=== PATIENT | female | born 1985 | race Caucasian/White ===

== ENCOUNTER 2016-06-05 20:21 | Emergency (ER) | payer OTHER ==
--- NOTE | ~2016-06-05 | CT4 ---
[facility] A Service of [facility] & [facility] RADIOLOGY TEXT RESULTS PATIENT: DONNIE TURNER LOCATION: SED : 81 UNIT #: [id number] AGE: [address]: Sushil Gruber MD SEX: F ORDER DR: [id number] [address] [address] [id number] E MR#: [id number] Acc #: [id number] NAME: DONNIE TURNER : 1985 SEX: F STUDY DATE/TIME: 06/05/2016 20:40 UNIT: SED ROOM: STUDY DESCRIPTION: CT Abd and Pelv Wo Cont Attending Physician: Sushil Gruber M.D. Ordering Physician: Sushil Gruber M.D. Primary Care Physician: Graciela Sanderson M.D. MEDICAL IMAGING REPORT This report is preliminary unless electronic signature is present. EXAM CT abdomen and pelvis without IV contrast. COMPARISON April 07, 2016 and April 03, 2013. INDICATIONS 30-year-old female with lower back and abdominal pain for 2 days along with nausea and emesis. FINDINGS Axial CT imaging in the abdomen and pelvis was performed without IV contrast. Coronal and sagittal reformats were constructed. Lack of IV contrast limits evaluation of adenopathy, vasculature and viscera. This CT exam was performed with one or more of the following radiation dose reduction techniques: Automatic exposure control, adjustment of mA and/or kV according to patient size, and iterative reconstruction. Tiny fat-containing umbilical hernia. No acute fractures or suspicious osseous lesions. No acute findings in the lower chest. Unenhanced pancreas, spleen and adrenal glands are unremarkable. There is a cyst versus focal fat in the inferior right hepatic lobe measuring up to 1.1 cm. Bilateral nonobstructive renal calculi. Stable pelvic phleboliths as compared to April 07, 2016. No evidence of ureteral calculi. Urinary bladder is collapsed. There is likely a tampon in place within the vagina. Unenhanced CT appearance of the uterus is unremarkable. No definite adnexal masses. No free fluid or pneumoperitoneum. Normal course of the abdominal aorta with normal caliber. No evidence of adenopathy. No bowel obstruction. No evidence of acute appendicitis. IMPRESSION [facility] A Service of [facility] & [facility] RADIOLOGY TEXT RESULTS PATIENT: DONNIE TURNER LOCATION: SED : [birth year] UNIT #: [id number] AGE: [address]: Sushil Gruber MD SEX: F ORDER DR: 1. No acute abnormality. Bilateral nonobstructive renal calculi. 2. 1.1 cm cyst versus focal fat within the right hepatic lobe. Dictated by... Johnson Fisher M.D. THIS IS AN ELECTRONICALLY VERIFIED REPORT Johnson Fisher M.D. at 06/07/2016 5:59 PM WILEY/deandra TD: 06/06/2016 03:42 JOB #: [id number] MEDICAL IMAGING REPORT Page 1 of 1
[2016-06-05 20:21] LABS: URINE SOURCE CLEAN CATCH
[~2016-06-05 20:21] MED LIST: ALBUTEROL MININEB NEB; ALBUTEROL17 GM INH; AMOXICILLIN PO; AMOXICILLIN500 M1 PO; BACTRIM DS TABL1 TA2 PO; CELEXA10 MG PO; COLACE PO; FLONASE 0.05% N16 G1; GUAIFENESIN200 M1 PO; IRON1 TAB PO; LORTAB 5/500 TA1 TA1 PO; NO MEDICATIONS; PREDNISONE PO; PRILOSEC20 MG PO; PROCTOFOAM-HC10 G1 TOP; TYLENOL #3 PO; VISTARIL PO; VOLTAREN75 MG PO; ZITHROMAX PO; ZOFRAN ODT4 MG PO; [UNRECOGNIZED DRUG - OTHER] PO
[2016-06-05 20:23] LABS: BASOPHIL% 0.4 % (0-2.5); EOSINOPHIL% 0.1 % (0.0-7.0); HEMATOCRIT 38.1 % (35.0-45.0); HEMOGLOBIN 13.1 gm/dL (12.0-16.0); LYMPHOCYTE# 0.7 X10e3 (1.0-3.5); LYMPHOCYTE% 8.6 % (17.0-45.0); MEAN CELL VOLUME 87.8 FL (83-96); MEAN CORPUSCULAR HEMOGLOBIN 30.3 PG (28-34); MEAN CORPUSCULAR HGB CONC 34.5 g/dL (30-36); MEAN PLATELET VOLUME 6.8 FL (6.5-11.5); MONOCYTE# 0.7 X10e3 (0-1.0); MONOCYTE% 8.7 % (3.0-12.0); NEUTROPHIL% 82.2 % (40-75); PLATELET COUNT 163 X10e3 (140-420); RED BLOOD COUNT 4.34 X10e (3.90-5.30); RED CELL DISTRIBUTION WIDTH 12.3 % (11.0-15.5); WHITE BLOOD COUNT 8.5 X10e3 (4.0-10.5)
[2016-06-05 20:25] LABS: DIFF IND NO; URINE APPEARANCE HAZY; URINE BILIRUBIN NEG (NEG); URINE BLOOD 1+ (NEG); URINE COLOR YELLOW; URINE GLUCOSE NEG (NORM); URINE KETONE NEG (NEG); URINE LEUKOCYTE ESTERASE 3+ (NEG); URINE NITRATE NEG (NEG); URINE PH 6.5 (5-8); URINE PROTEIN 2+ (NEG); URINE SPECIFIC GRAVITY <=1.005 (1.003-1.035)
[2016-06-05 20:26] LABS: MICRO INDICATED? YES
[2016-06-05 20:29] LABS: CULTURE INDICATED? YES; URINE BACTERIA 1+ (NEG); URINE RBC 0-2 /[HPF] (0-2); URINE SQUAMOUS EPITHELIAL CELL OCCAS /[HPF]; URINE TRANSITIONAL EPI CELLS FEW /[HPF]; URINE WBC 50-100 /[HPF] (0-5)
[2016-06-05 20:39] LABS: CALCIUM SERUM 8.8 mg/dL (8.4-10.2); CREATININE SERUM 0.6 mg/dL (0.6-1.4); GLOM FILT RATE Estimated 120.6 mL/min (>60); POTASSIUM 3.1 mmol/L (3.5-5.1)
== END 2016-06-05 22:49 | disposition home or self-care (01) ==
LOC: SED 20:21
PROVIDERS: Emergency Medicine
DX: N10 Acute pyelonephritis (principal); E87.6 Hypokalemia; J45.909 Unspecified asthma, uncomplicated; Z86.2 Personal history of diseases of the blood and blood-forming organs and certain disorders involving the immune mechanism; Z79.2 Long term (current) use of antibiotics; Z88.5 Allergy status to narcotic agent
CPT/HCPCS: 36415; 74176; 80048; 81003; 84703; 85025; 87086; 87088; 87186; 96361; 96374; 96375; 99284; J1885; J2405

== ENCOUNTER 2016-08-08 12:30 | Emergency (ER) | payer OTHER ==
--- NOTE | ~2016-08-08 | CR21 ---
[facility] A Service of [facility] & [facility] RADIOLOGY TEXT RESULTS PATIENT: DONNIE TURNER LOCATION: SED : 83 UNIT #: [id number] AGE: [address]: RUPERTO RONQUILLO SEX: F ORDER DR: [id number] [place] [id number] E MR#: [id number] Acc #: [id number] NAME: DONNIE TURNER : 1985 SEX: F STUDY DATE/TIME: 08/08/2016 13:15 UNIT: SED ROOM: STUDY DESCRIPTION: CR Ankle Min 3 Views Rt Attending Physician: Ruperto Ronquillo Aprn Ordering Physician: Ruperto Ronquillo Aprn Primary Care Physician: Graciela Sanderson M.D. MEDICAL IMAGING REPORT This report is preliminary unless electronic signature is present. EXAM Right ankle, 3 views HISTORY Medial and lateral ankle pain, fell on steps last night. FINDINGS Three views of the right ankle demonstrate soft tissue swelling over the lateral malleolus. No fracture or dislocation. The ankle mortise appears intact. The talus and subtalar joint are unremarkable. IMPRESSION Lateral ankle soft tissue swelling consistent with soft tissue injury. No visible fracture. Dictated by... Juan F Browning M.D. THIS IS AN ELECTRONICALLY VERIFIED REPORT Juan F Browning M.D. at 08/10/2016 5:11 PM MAR/gabbi TD: 08/08/2016 17:55 JOB #: [id number] MEDICAL IMAGING REPORT Page 1 of 1
[2016-08-08] MEDS ORDERED: IBUPROFEN (12:31)
== END 2016-08-08 14:19 | disposition home or self-care (01) ==
LOC: SED 12:30
DX: S93.401A Sprain of unspecified ligament of right ankle, initial encounter (principal); Z88.5 Allergy status to narcotic agent; W10.9XXA Fall (on) (from) unspecified stairs and steps, initial encounter; Y92.009 Unspecified place in unspecified non-institutional (private) residence as the place of occurrence of the external cause
CPT/HCPCS: 29540; 73610; 99283